=== PATIENT | female | born 1950 | race Caucasian/White ===

== ENCOUNTER 2020-02-17 16:28 | Emergency (ER) | payer MEDICARE ==
[~2020-02-17] VITALS: Ht 152.4 cm; Wt 74.1 kg
--- NOTE | 2020-02-17 18:51 | NUR ---
endoscopy tech at bedside
[2020-02-17 19:54] VITALS: BP 152/18
== END 2020-02-17 19:56 | disposition home or self-care (01) ==
LOC: ER 16:28
DX: R60.0 Localized edema (principal); F19.20 Other psychoactive substance dependence, uncomplicated; I10 Essential (primary) hypertension; E11.9 Type 2 diabetes mellitus without complications; Z85.9 Personal history of malignant neoplasm, unspecified; Z88.0 Allergy status to penicillin
CPT/HCPCS: 93970; 99284

== ENCOUNTER 2020-12-11 20:48 | Emergency (ER) | payer MEDICARE ==
[~2020-12-11] VITALS: Ht 152.4 cm; Wt 72.0 kg
[~2020-12-11 20:48] MED LIST: LIDOcaine 1% W/epiNEPHrine 1:200,000 10ml vial ONE
[2020-12-11] MEDS ORDERED: LIDOcaine 1% W/epiNEPHrine 1:200,000 10ml vial IJ ONE (22:10)
--- NOTE | 2020-12-11 22:37 | NUR ---
PA NUMBED WITH LIDO AND TECH IRRIGATED WOUND. PA TO SUTURE.
[2020-12-12 01:12] VITALS: BP 146/71
== END 2020-12-12 01:16 | disposition home or self-care (01) ==
LOC: ER 20:49
DX: S51.011A Laceration without foreign body of right elbow, initial encounter (principal); S70.01XA Contusion of right hip, initial encounter; I10 Essential (primary) hypertension; E11.9 Type 2 diabetes mellitus without complications; Z88.0 Allergy status to penicillin; Z85.9 Personal history of malignant neoplasm, unspecified; W01.0XXA Fall on same level from slipping, tripping and stumbling without subsequent striking against object, initial encounter; Y93.89 Activity, other specified; Y92.89 Other specified places as the place of occurrence of the external cause; Y99.8 Other external cause status
CPT/HCPCS: 12035; 73080; 99284

== ENCOUNTER 2020-12-30 13:00 | Emergency (ER) | payer MEDICARE ==
[~2020-12-30] VITALS: Ht 152.4 cm; Wt 73.0 kg
[2020-12-30 17:01] LABS: BASOPHILS % (AUTO) 0.3 % (0-1); EOSINOPHILS # (AUTO) 0.2 X10'3 (0-0.9); EOSINOPHILS % (AUTO) 1.4 % (0-6); HEMATOCRIT 34.3 % (35.0-45.0); LYMPHOCYTES # (AUTO) 1.8 X10'3 (1.1-4.8); LYMPHOCYTES % (AUTO) 15.5 % (21-51); MEAN CORPUSCULAR HEMOGLOBIN 28.2 PG (27.0-31.0); MEAN CORPUSCULAR HGB CONC 32.2 g/dL (33.0-36.5); MEAN CORPUSCULAR VOLUME 87.5 FL (78-98); MEAN PLATELET VOLUME 7.7 FL (7.4-10.4); MONOCYTES # (AUTO) 0.9 X10'3 (0-0.9); MONOCYTES % (AUTO) 7.9 % (2-12); NEUTROPHILS # (AUTO) 8.5 X10'3 (1.8-7.7); NEUTROPHILS % (AUTO) 74.9 % (42-75); PLATELET COUNT 236 X10'3 (140-440); RED BLOOD COUNT 3.92 X10'6 (4.20-5.60); RED CELL DISTRIBUTION WIDTH 18.7 % (11.5-14.5); WHITE BLOOD COUNT 11.3 X10'3 (4.5-11.0)
[2020-12-30] MEDS ORDERED: CEPH250T PO (17:14)
[2020-12-30 17:17] LABS: ALANINE AMINOTRANSFERASE 27 U/L (12-78); ALBUMIN 3.7 G/DL (3.4-5.0); ALBUMIN/GLOBULIN RATIO 0.9 (1.1-1.5); ALKALINE PHOSPHATASE 91 IU/L (46-116); ANION GAP 9 (8-16); ASPARTATE AMINO TRANSFERASE 18 U/L (10-37); BILIRUBIN,TOTAL 0.7 MG/DL (0.1-1.0); BLOOD UREA NITROGEN 30 MG/DL (7-18); BUN/CREATININE RATIO 33.3 (6.6-38.0); CALCIUM 8.6 MG/DL (8.5-10.1); CHLORIDE 106 MMOL/L (99-107); GLUCOSE 70 MG/DL (70-104); POTASSIUM 3.9 MMOL/L (3.5-5.1); SODIUM 144 MMOL/L (135-145); TOTAL CARBON DIOXIDE 28.6 MMOL/L (24-32); TOTAL PROTEIN 7.6 G/DL (6.4-8.2); eGFR 62 ML/MIN
[2020-12-30 18:02] VITALS: BP 159/79
== END 2020-12-30 18:43 | disposition home or self-care (01) ==
LOC: ER 13:02
DX: L03.116 Cellulitis of left lower limb (principal); L03.115 Cellulitis of right lower limb; R60.0 Localized edema; I10 Essential (primary) hypertension; E11.9 Type 2 diabetes mellitus without complications; Z85.9 Personal history of malignant neoplasm, unspecified; Z88.0 Allergy status to penicillin; Z79.2 Long term (current) use of antibiotics
CPT/HCPCS: 80053; 82948; 83880; 85025; 93005; 99284